=== PATIENT | male | born 1970 | race Caucasian/White ===

== ENCOUNTER → 2023-12-14 06:55 | Outpatient (REF) | payer OTHER, SELFPAY | LOC: HWRAD 06:55 | PROVIDERS: ATTENDING PHYSICIAN Internal Medicine | DX: R51.9 Headache, unspecified (principal); M79.642 Pain in left hand | CPT/HCPCS: 70470; 73120; Q9967 ==

== ENCOUNTER → 2023-12-21 08:59 | Outpatient (REF) | payer OTHER, SELFPAY | LOC: HWRAD 08:59 | PROVIDERS: ATTENDING PHYSICIAN Internal Medicine | DX: I77.9 Disorder of arteries and arterioles, unspecified (principal) | CPT/HCPCS: 70498; Q9967 ==

== ENCOUNTER → 2025-02-05 07:25 | Outpatient (REF) | payer OTHER, SELFPAY | LOC: RAD 07:25 | PROVIDERS: ATTENDING PHYSICIAN Internal Medicine | DX: I77.9 Disorder of arteries and arterioles, unspecified (principal) | CPT/HCPCS: 70498; Q9967 ==